=== PATIENT | male | born 1995 | race Caucasian/White ===

== ENCOUNTER 2023-06-28 01:12 | Emergency (ER) | payer OTHER ==
[~2023-06-28] VITALS: Ht 172.7 cm; Wt 70.0 kg
[2023-06-28 01:20] VITALS: BP 131/62; O2SAT 98
[2023-06-28] MEDS ORDERED: LIDOCAINE HCL/EPINEPHRINE 1%-EPI 1:100,000 20 ML VIAL INFIL ONE (02:15)
[2023-06-28] MEDS ORDERED: ACETAMINOPHEN 325MG TABLET PO ONE (02:15)
[2023-06-28] MEDS ORDERED: BACITRACIN ZINC OINT UDPKT TOP ONE (02:15)
[2023-06-28] MEDS ORDERED: NAPR-681 PO (03:46)
[2023-06-28 04:11] VITALS: PULSE 79; RESP 16; TEMP 98.5
== END 2023-06-28 04:19 | disposition home or self-care (01) ==
LOC: ER 01:12 → EDBD 01:12 → ER 04:19
DX: S01.81XA Laceration without foreign body of other part of head, initial encounter (principal); Y08.89XA Assault by other specified means, initial encounter; Y93.89 Activity, other specified; Y92.89 Other specified places as the place of occurrence of the external cause; Y99.8 Other external cause status
CPT/HCPCS: 99283; J3490; Z7610